=== PATIENT | male | born 1995 | race Caucasian/White ===

== ENCOUNTER 2018-10-19 18:30 | Emergency (ER) | payer SELFPAY ==
[~2018-10-19] VITALS: Ht 165.1 cm; Wt 47.3 kg
[2018-10-19 19:10] VITALS: Ht 165.1 cm; Wt 47.3 kg
== END 2018-10-19 21:00 | disposition left against medical advice (07) ==
LOC: FTE 18:30
DX: Z53.21 Procedure and treatment not carried out due to patient leaving prior to being seen by health care provider (principal)